=== PATIENT | female | born 2000 | race Caucasian/White ===

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

== ENCOUNTER 2018-10-15 02:56 | Emergency (ER) | payer MEDICAID, OTHER ==
[2018-10-15 03:28] LABS: ADD MAN DIFF? NO
[2018-10-15] MEDS: SOD CHLORIDE 0.9% 500 ML IV (03:28)
[2018-10-15 03:32] LABS: WHITE BLOOD COUNT 10.4 10^3/ul (4.8-10.8)
[2018-10-15 03:32] LABS: BASOPHILS % 0.3 % (0.0-2.0); EOSINOPHILS # 0.1 10^3/ul (0.0-0.5); HEMATOCRIT 35.5 % (37.0-47.0); HEMOGLOBIN 11.7 g/dl (12.0-16.0); LYMPHOCYTES # 2.4 10^3/ul (0.8-2.9); LYMPHOCYTES % 22.9 % (18.0-55.0); MEAN CORPUSCULAR HEMOGLOBIN 29.2 pg (29.0-33.0); MEAN CORPUSCULAR VOLUME 88.5 fl (72.0-104.0); MEAN PLATELET VOLUME 11.9 fl (7.4-10.4); MONOCYTE # 0.8 10^3/ul (0.3-0.9); MONOCYTES % 7.8 % (0.0-13.0); NEUTROPHILS % 67.5 % (30.0-74.0); PLATELET COUNT 201 10^3/UL (140-415); RED BLOOD COUNT 4.01 10^6/ul (4.20-5.40); RED CELL DISTRIBUTION WIDTH 13.4 % (11.5-14.5)
[2018-10-15 03:50] LABS: ADD UMIC YES; UR ASCORBIC ACID NEGATIVE (NEGATIVE); UR BACTERIA FEW /HPF (NONE SEEN); UR BILIRUBIN (Dip) NEGATIVE (NEGATIVE); UR BLOOD (Dip) NEGATIVE (NEGATIVE); UR CLARITY CLOUDY (CLEAR); UR COLOR YELLOW (YELLOW); UR GLUCOSE (Dip) NEGATIVE (NEGATIVE); UR KETONES (Dip) NEGATIVE (NEGATIVE); UR LEUKOCYTE ESTERASE (Dip) TRACE Leu/ul (NEGATIVE); UR NITRITE (Dip) NEGATIVE (NEGATIVE); UR RBC 1 /HPF (0-5); UR SPECIFIC GRAVITY (Dip) 1.014 (1.003-1.030); UR SQUAMOUS EPITHELIAL CELL MODERATE /HPF (FEW); UR TOTAL PROTEIN (Dip) NEGATIVE (NEGATIVE); UR UROBILINOGEN (Dip) NEGATIVE (NEGATIVE); UR WBC 5 /HPF (0-5)
[2018-10-15 04:57] LABS: ANION GAP 11 (5-13); BLOOD UREA NITROGEN 9 mg/dl (7-20); CALCIUM 9.4 mg/dl (8.4-10.2); CARBON DIOXIDE 27 mmol/L (21-31); CHLORIDE 104 mmol/L (97-110); CREATININE 0.54 mg/dl (0.44-1.00); Estimated GFR > 60 mL/min (>60); GLUCOSE 98 mg/dl (70-220); POTASSIUM 3.5 mmol/L (3.5-5.1); SODIUM 142 mmol/L (135-144)
== END 2018-10-15 05:25 | disposition home or self-care (01) ==
LOC: E/R 02:56
DX: R10.84 Generalized abdominal pain (principal); R11.2 Nausea with vomiting, unspecified; Z33.1 Pregnant state, incidental
CPT/HCPCS: 36415; 76805; 80048; 81001; 81025; 85025; 99285-25

== ENCOUNTER 2019-01-06 17:41 | Outpatient (CLI) | payer MEDICAID ==
[2019-01-06] MEDS: LACTATED RINGER'S 1,000 ML IV (19:39)
[2019-01-06] MEDS: BUTORPHANOL 2 MG INJ IV (20:11)
[2019-01-06 20:38] LABS: ALANINE AMINOTRANSFERASE 28 IU/L (13-69); ALBUMIN 3.9 g/dl (3.3-4.9); ALKALINE PHOSPHATASE 120 IU/L (42-121); ASPARTATE AMINO TRANSFERASE 46 IU/L (15-46); BILIRUBIN,INDIRECT 0.3 mg/dl (0-1.1); BILIRUBIN,TOTAL 0.3 mg/dl (0.2-1.3); TOTAL PROTEIN 7.4 g/dl (6.1-8.1)
[2019-01-11 10:27] LABS: CHENODEOXYCHOLIC ACID 14.2 umol/L (< OR = 3.1); CHOLIC ACID 24.3 umol/L (< OR = 1.8); TOTAL BILE ACIDS 50.4 umol/L (< OR = 6.8)
== END 2019-01-06 22:03 | disposition home or self-care (01) ==
LOC: OBT 17:41 → L-D 17:42 → OBT 22:03
DX: O99.613 Diseases of the digestive system complicating pregnancy, third trimester (principal); K80.20 Calculus of gallbladder without cholecystitis without obstruction; R10.9 Unspecified abdominal pain; Z3A.32 32 weeks gestation of pregnancy
CPT/HCPCS: 80076; 83789

== ENCOUNTER 2019-01-16 01:40 | Emergency (ER) | payer MEDICAID | END 2019-01-16 02:13 | disposition home or self-care (01) | LOC: E/R 01:40 | DX: O26.893 Other specified pregnancy related conditions, third trimester (principal); R14.0 Abdominal distension (gaseous); R06.02 Shortness of breath; Z3A.34 34 weeks gestation of pregnancy | CPT/HCPCS: 93005; 99282 ==